=== PATIENT | female | born 1945 | race Caucasian/White ===

== ENCOUNTER → 2017-06-02 | Outpatient (CLI) | payer OTHER | LOC: FIMAGING 12:22 | PROVIDERS: ATTEND Internal Medicine | DX: Z12.31 Encounter for screening mammogram for malignant neoplasm of breast (principal) | CPT/HCPCS: G0202 ==

== ENCOUNTER 2017-07-01 14:16 | Observation (INO) | payer OTHER ==
--- NOTE | 2017-07-01 14:44 | EDPHY ---
H & P Time Seen by Provider: 07/01/17 14:34 HPI/ROS: CHIEF COMPLAINT: Memory difficulties HISTORY OF PRESENT ILLNESS: Patient is a 72-year-old female who was treated for high cholesterol who presents emergency department with memory difficulties. The patient states that she was outside with her . She came to him and stated that she felt "funny." He states that she seemed slightly "foggy." Per report, she had no word-finding difficulties. She had normal speech. She had no weakness or numbness. No visual change or dizziness. No headache or neck pain. No recent fall or trauma. Patient states that she feels as though she is having difficulty remembering things. She took an aspirin but then could not remember that she took an aspirin and took a 2nd tablet. No previous stroke. REVIEW OF SYSTEMS: My complete review of systems is negative except as mentioned in the HPI. Past Medical/Surgical History: Includes hypercholesterolemia Past surgical history: Noncontributory Social history: The patient is here with her . She does not smoke. Physical Exam: Vitals noted GENERAL: Well-appearing, in no acute distress, alert. HEENT: Eyes normal to inspection, normal pharynx, no signs of dehydration. NECK: No thyromegaly, no lymphadenopathy, supple. RESPIRATORY: Clear to auscultation bilaterally, no rales, rhonchi or wheezing. CVS: Regular rate and rhythm, no rubs, murmurs, or gallops. ABDOMEN: Soft, nontender, nondistended, no organomegaly. BACK: Normal to inspection, no CVA tenderness. SKIN: Normal color, no rash, warm, dry. No pallor. EXTREMITIES: No pedal edema, no calf tenderness, no Homans sign or cords, no joint swelling. NEURO/PSYCH: Higher functions: Alert and Oriented x3. Normal speech and cognition. Normal mood and affect. Normal memory 3/3 Cranial nerves: Normal as tested. Cerebellar: Normal as tested. Good finger to nose, good [id number], normal gait. Peripheral exam: Normal motor exam. Normal sensation. Normal reflexes. NIHSS = 0 Constitutional: Initial Vital Signs Temperature (C) 36.5 C 07/01/17 14:31 Heart Rate 71 07/01/17 14:31 Respiratory Rate 16 07/01/17 14:31 Blood Pressure 184/96 H 07/01/17 14:31 O2 Sat (%) 97 07/01/17 14:31 O2 Delivery Mode Room Air Allergies/Adverse Reactions: No Known Allergies Allergy (Verified 07/01/17 14:19) Home Medications: Medication Instructions Recorded Multivitamins [Multivitamin (*)] 1 each PO DAILY 07/01/17 Rosuvastatin Calcium [Crestor 10mg 10 mg PO HS 07/01/17 (RX)] Medical Decision Making - Diagnostics Imaging Results: Imaging Impressions Head CT 07/01/17 14:45 Impression: 1. No acute intracranial findings. 2. Diffuse cerebral atrophy with periventricular and subcortical low attenuation consistent with chronic microvascular ischemic gliosis. Findings discussed with RHONDA Graham OHARA 07/01/2017 at 15:30. Brain MRI 07/01/17 15:33 Impression: 1. No acute intracranial findings. 2. Atrophy with white matter change most likely related to chronic microvascular ischemic gliosis. Findings discussed with RHONDA Graham OHARA 07/01/2017 at 17:05. ED Course/Re-evaluation: I met the patient on arrival. I performed her initial evaluation. Her NIHSS = 0. I did not call a stroke alert as she had a normal neuro exam. I discussed the plan with the patient and her . I answered all her questions. An IV was placed. Laboratory studies and EKG were obtained. Head CT without IV contrast was ordered. I-STAT: Sodium 141, potassium 3.3, glucose 128, creatinine 0.9, hematocrit 45 IV patient's laboratory studies. 15 30: Head CT: No acute disease. Please refer the dictated report by Dr. Coronado. I discussed the results with the patient. I answered all her questions. On recheck she had no focal neurologic deficits. An MRI was ordered. Sinus rhythm at 60. Left axis deviation. I discussed the case with Dr. Ruff. I also discussed the case with Dr. Harvey from Neurology. 17 20: I discussed case with Radiology. No acute disease noted on the MRI. Differential Diagnosis: My differential includes but is not limited to ischemic CVA, hemorrhagic CVA, transient global amnesia, TIA, dissection, aneurysm, electrolyte abnormality, sugar abnormality, ACS - Data Points Laboratory Results: Laboratory Results 07/01/17 14:20 07/01/17 14:20 07/01/17 07/01/17 07/01/17 14:27 14:20 14:20 WBC RBC Hgb POC Hgb 15.3 gm/dL gm/dL (12.6-16.3) Hct POC Hct 45 % % (38-47) MCV MCH MCHC RDW Plt Count MPV Neut % (Auto) Lymph % (Auto) [place] % (Auto) Eos % (Auto) Baso % (Auto) Nucleat RBC Rel Count Absolute Neuts (auto) Absolute Lymphs (auto) Absolute Monos (auto) Absolute Eos (auto) Absolute Basos (auto) Absolute Nucleated RBC Immature Gran % Immature Gran # PT 12.8 SEC SEC (12.0-15.0) INR 0.97 (0.83-1.16) APTT 26.2 SEC SEC (23.0-38.0) POC Sodium 141 mEq/L mEq/L (134-144) Sodium 141 mEq/L mEq/L (134-144) POC Potassium 3.3 mEq/L mEq/L (3.3-5.0) Potassium 3.6 mEq/L mEq/L (3.5-5.2) POC Chloride 105 mEq/L mEq/L (97-110) Chloride 104 mEq/L mEq/L (97-110) Carbon Dioxide 23 mEq/l mEq/l (22-31) Anion Gap 14 mEq/L mEq/L (8-16) POC BUN 17 mg/dL mg/dL (7-23) BUN 16 mg/dL mg/dL (7-23) Creatinine 0.8 mg/dL mg/dL (0.6-1.0) POC Creatinine 0.9 mg/dL mg/dL (0.6-1.0) Estimated GFR > 60 Glucose 129 mg/dL H mg/dL (70-100) POC Glucose 128 mg/dL H mg/dL (70-100) Calcium 9.7 mg/dL mg/dL (8.5-10.4) Troponin I < 0.012 ng/mL ng/mL (0.000-0.034) 07/01/17 14:20 WBC 9.01 10^3/uL 10^3/uL (3.80-9.50) RBC 4.70 10^6/uL 10^6/uL (4.18-5.33) Hgb 14.9 g/dL g/dL (12.6-16.3) POC Hgb Hct 42.1 % % (38.0-47.0) POC Hct MCV 89.6 fL fL (81.5-99.8) MCH 31.7 pg pg (27.9-34.1) MCHC 35.4 g/dL g/dL (32.4-36.7) RDW 11.6 % % (11.5-15.2) Plt Count 219 10^3/uL 10^3/uL (150-400) MPV 9.4 fL fL (8.7-11.7) Neut % (Auto) 64.1 % % (39.3-74.2) Lymph % (Auto) 30.0 % % (15.0-45.0) [place] % (Auto) 4.2 % L % (4.5-13.0) Eos % (Auto) 1.0 % % (0.6-7.6) Baso % (Auto) 0.4 % % (0.3-1.7) Nucleat RBC Rel Count 0.0 % % (0.0-0.2) Absolute Neuts (auto) 5.77 10^3/uL 10^3/uL (1.70-6.50) Absolute Lymphs (auto) 2.70 10^3/uL 10^3/uL (1.00-3.00) Absolute Monos (auto) 0.38 10^3/uL 10^3/uL (0.30-0.80) Absolute Eos (auto) 0.09 10^3/uL 10^3/uL (0.03-0.40) Absolute Basos (auto) 0.04 10^3/uL 10^3/uL (0.02-0.10) Absolute Nucleated RBC 0.00 10^3/uL 10^3/uL (0-0.01) Immature Gran % 0.3 % % (0.0-1.1) Immature Gran # 0.03 10^3/uL 10^3/uL (0.00-0.10) PT INR APTT POC Sodium Sodium POC Potassium Potassium POC Chloride Chloride Carbon Dioxide Anion Gap POC BUN BUN Creatinine POC Creatinine Estimated GFR Glucose POC Glucose Calcium Troponin I Medications Given: Discontinued Medications Sodium Chloride (Ns) 500 mls @ 500 mls/hr IV EDNOW ONE PRN Reason: Protocol Stop: 07/01/17 15:44 Last Admin: 07/01/17 15:35 Dose: 500 mls Point of Care Test Results: 07/01/17 14:27 POC Sodium 141 POC Potassium 3.3 POC Chloride 105 POC BUN 17 POC Creatinine 0.9 POC Glucose 128 H Departure - Departure Disposition: Home, Routine, Self-Care Clinical Impression: Memory loss Condition: Good
[2017-07-01] MEDS ORDERED: NS 500 ML IV ONE (14:45)
--- NOTE | 2017-07-01 14:49 | CPEKG ---
Heart Rate: 60 RR Interval: 1000 P-R Interval: 144 QRSD Interval: 92 QT Interval: 436 QTC Interval: 436 P [place]: 45 QRS [place]: -31 T Wave [place]: -18 EKG Severity - BORDERLINE ECG - EKG Impression: SINUS RHYTHM EKG Impression: LEFT AXIS DEVIATION EKG Impression: BORDERLINE T ABNORMALITIES, DIFFUSE LEADS Electronically Signed By: Fawn Torres 01-Jul-2017 20:57:49
[2017-07-01 14:57] LABS: PLATELET COUNT 219 10^3/uL (150-400)
[2017-07-01 15:14] LABS: INR 0.97 (0.83-1.16); PROTIME(PATIENT) 12.8 SEC (12.0-15.0)
[2017-07-01] MEDS ORDERED: LABETALOL HCL 5 MG/ML 20 ML MDV IVP PRN (17:10)
[2017-07-01] MEDS ORDERED: ACETAMINOPHEN 325 MG TAB PO PRN (17:15)
[2017-07-01] MEDS ORDERED: ONDANSETRON DISINTEGRATING 4 MG TAB PO PRN (17:15)
[2017-07-01] MEDS ORDERED: ONDANSETRON 4 MG/2 ML VIAL IVP PRN (17:15)
--- NOTE | 2017-07-01 17:24 | PDGENHP ---
History and Physical - Chief Complaint acute memory loss - History of Present Illness Patient is a 72-year-old female with hx of HLD who presented to the emergency department with acute short term memory problems and feeling of being lost while gardening today. she could not remember what she was doing or why she was there. She had no word-finding difficulties. She had normal speech. She had no weakness or numbness. No visual change or dizziness. No headache or neck pain. No recent fall or trauma. She took 2 Aspirin prior to arrival to the E.D. In the E.D. her symptoms persisted. CT brain was unremarkable for acute findings. An MRI of the brain is pending. She has no other neuro deficits. No hx of Afib. She has no difficulty with swallowing. Neuro has been consulted by the E.D she is being admitted for further w/u. Denies CP, palpitations, leg swelling, SOB, N/V PMhx: hypercholesterolemia Social history: non smoker. FmHx: NC History Information - Allergies/Home Medication List Allergies/Adverse Reactions: No Known Allergies Allergy (Verified 07/01/17 14:19) Home Medications: Multivitamins [Multivitamin (*)] 1 each PO DAILY 07/01/17 [Last Taken 2 Weeks Ago ~06/17/17] Rosuvastatin Calcium [Crestor 10mg (RX)] 10 mg PO HS 07/01/17 [Last Taken ] I have personally reviewed and updated: medical history, social history - Social History Smoking Status: Never smoked Review of Systems Review of Systems: ROS: 10pt was reviewed & negative except for what was stated in HPI & below Physical Exam Physical Exam: Temp Pulse Resp BP Pulse Ox 36.5 C 62 16 152/92 H 95 07/01/17 14:31 07/01/17 15:39 07/01/17 15:39 07/01/17 15:39 07/01/17 15:39 Constitutional: no apparent distress, appears nourished Eyes: PERRL, EOMI Ears, Nose, Mouth, Throat: moist mucous membranes, hearing normal Cardiovascular: regular rate and rhythym, no murmur, rub, or gallop, No edema Respiratory: no respiratory distress, no rales or rhonchi, clear to auscultation Gastrointestinal: normoactive bowel sounds, soft, non-tender abdomen Skin: warm Neurologic: AAOx3, CN II-XII Intact, No facial droop Psychiatric: interacting appropriately, not anxious, not encephalopathic, thought process linear, encephalopathic Lab Data & Imaging Review 07/01/17 14:20 07/01/17 14:20 WBC 9.01 10^3/uL (3.80-9.50) 07/01/17 14:20 RBC 4.70 10^6/uL (4.18-5.33) 07/01/17 14:20 Hgb 14.9 g/dL (12.6-16.3) 07/01/17 14:20 POC Hgb 15.3 gm/dL (12.6-16.3) 07/01/17 14:27 Hct 42.1 % (38.0-47.0) 07/01/17 14:20 POC Hct 45 % (38-47) 07/01/17 14:27 MCV 89.6 fL (81.5-99.8) 07/01/17 14:20 MCH 31.7 pg (27.9-34.1) 07/01/17 14:20 MCHC 35.4 g/dL (32.4-36.7) 07/01/17 14:20 RDW 11.6 % (11.5-15.2) 07/01/17 14:20 Plt Count 219 10^3/uL (150-400) 07/01/17 14:20 MPV 9.4 fL (8.7-11.7) 07/01/17 14:20 Neut % (Auto) 64.1 % (39.3-74.2) 07/01/17 14:20 Lymph % (Auto) 30.0 % (15.0-45.0) 07/01/17 14:20 [place] % (Auto) 4.2 % (4.5-13.0) L 07/01/17 14:20 Eos % (Auto) 1.0 % (0.6-7.6) 07/01/17 14:20 Baso % (Auto) 0.4 % (0.3-1.7) 07/01/17 14:20 Nucleat RBC Rel Count 0.0 % (0.0-0.2) 07/01/17 14:20 Absolute Neuts (auto) 5.77 10^3/uL (1.70-6.50) 07/01/17 14:20 Absolute Lymphs (auto) 2.70 10^3/uL (1.00-3.00) 07/01/17 14:20 Absolute Monos (auto) 0.38 10^3/uL (0.30-0.80) 07/01/17 14:20 Absolute Eos (auto) 0.09 10^3/uL (0.03-0.40) 07/01/17 14:20 Absolute Basos (auto) 0.04 10^3/uL (0.02-0.10) 07/01/17 14:20 Absolute Nucleated RBC 0.00 10^3/uL (0-0.01) 07/01/17 14:20 Immature Gran % 0.3 % (0.0-1.1) 07/01/17 14:20 Immature Gran # 0.03 10^3/uL (0.00-0.10) 07/01/17 14:20 PT 12.8 SEC (12.0-15.0) 07/01/17 14:20 INR 0.97 (0.83-1.16) 07/01/17 14:20 APTT 26.2 SEC (23.0-38.0) 07/01/17 14:20 POC Sodium 141 mEq/L (134-144) 07/01/17 14:27 Sodium 141 mEq/L (134-144) 07/01/17 14:20 POC Potassium 3.3 mEq/L (3.3-5.0) 07/01/17 14:27 Potassium 3.6 mEq/L (3.5-5.2) 07/01/17 14:20 POC Chloride 105 mEq/L (97-110) 07/01/17 14:27 Chloride 104 mEq/L (97-110) 07/01/17 14:20 Carbon Dioxide 23 mEq/l (22-31) 07/01/17 14:20 Anion Gap 14 mEq/L (8-16) 07/01/17 14:20 POC BUN 17 mg/dL (7-23) 07/01/17 14:27 BUN 16 mg/dL (7-23) 07/01/17 14:20 Creatinine 0.8 mg/dL (0.6-1.0) 07/01/17 14:20 POC Creatinine 0.9 mg/dL (0.6-1.0) 07/01/17 14:27 Estimated GFR > 60 07/01/17 14:20 Glucose 129 mg/dL (70-100) H 07/01/17 14:20 POC Glucose 128 mg/dL (70-100) H 07/01/17 14:27 Calcium 9.7 mg/dL (8.5-10.4) 07/01/17 14:20 Troponin I < 0.012 ng/mL (0.000-0.034) 07/01/17 14:20 Assessment & Plan Assessment: #Acute short term memory loss #?TIA #HLD Plan: -Neuro to consult, await reccs -Await MRI -TTE -Corotid US -Check RF, lipid panel -cont Statin -Schedule low dose Aspirin -Slight HTN noted, will allow permissive HTN -Telemetry -SCD's
[2017-07-01] MEDS ORDERED: ROSUVASTATIN CALCIUM 10 MG TAB PO SCH (21:00)
[2017-07-02 08:05] VITALS: RESP 14; O2SAT 94
[2017-07-02] MEDS ORDERED: MULTIVITAMINS 1 EACH TAB PO SCH (09:00)
[2017-07-02] MEDS ORDERED: ASPIRIN 81 MG CHEWABLE TAB PO SCH (09:00)
[2017-07-02 10:56] VITALS: BP 115/67; PULSE 58; TEMP 98
--- NOTE | 2017-07-02 10:59 | GCON ---
[f rep st] CONSULTATION NEUROLOGY CONSULTATION DATE OF CONSULTATION: 07/02/2017 REFERRING PHYSICIAN: Kingsley Ruff MD BILLING INFORMATION: seventy total minutes on the floor today and reviewing records, neuro imaging and in direct counseling with the patient along with coordination of care. CHIEF COMPLAINT: Amnesia. 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 She recently came home from a trip from [place] and states she was dehydrated. Then yesterday morning, she and her were working quite vigorously with an orbital alen to sand off the paint from their external home to repaint it themselves. She states she was applying a great deal of pressure with her chest and upper extremities while standing on a ladder using her core muscles along with repetitive kneeling and standing up. Certainly, she had repetitive Valsalva type maneuvers. Then, a little later in the morning, she began having a feeling of "fuzziness" and minimal headache symptoms. Her then noticed that the patient was unable to form new memories for a period of around 3-5 hours in total. She would repeat questions such as why are we having lunch although they just spoken about it a moment previously and repeat the same questions over and over. At no point - did she have loss or alteration of consciousness. She was brought to the ER and, after 1 or 2 hours in the ER, the symptoms completely resolved. There was never any focal weakness, sensory loss, language or motor speech disturbance at any time during these events. The patient had an MRI brain which showed no acute findings. No acute infarct or hemorrhage. The brain looks fairly healthy in terms of microvascular changes, there is minimal. She had a carotid ultrasound which showed no flow-limiting stenosis in the carotid system. There is some minimal plaque. She is essentially resolved overnight and doing well. REVIEW OF SYSTEMS: Ten-point review of system was done and only pertinent to HPI. PAST MEDICAL HISTORY: Please see Dr. Ruff's history and physical. SOCIAL HISTORY: Please see Dr. Ruff's history and physical. HOME MEDICATIONS: Please see Dr. Ruff's history and physical. ALLERGIES: Please see Dr. Ruff's history and physical PHYSICAL EXAMINATION: VITAL SIGNS: Blood pressure is 127/77, temperature 36.9 , heart rate is 64, O2 saturation is 95%. GENERAL: In no acute distress. Very pleasant. NEUROLOGIC: Higher mental function. She names 5/5, follows commands 5/5, and repeats 5/5. No aphasia. She is lucid. Cranial nerve exam normal 2 through 7, 11, and 12. No dysarthria or any other abnormal findings. Motor exam normal strength tone and DTRs throughout. Sensory normal to light touch throughout. Coordination normal. IMPRESSION AND PLAN: 1. Transient global amnesia. The patient's clinical history best fits with transient global amnesia (TGA). I am reassured that there were no focal motor, sensory, language or motor speech symptoms to suggest an acute neurovascular syndrome. Moreover, her MRI brain was negative in terms of diffusion-weighted images hours into symptom onset. All of this would support the diagnosis of transient global amnesia. She has no neurologic history such as seizures or migraines. Her activity of vigorous work, sanding the paint from their home is not an uncommon historical feature preceding an episode of transient global amnesia. She was counseled to such. We will put her on 2 weeks of [address] restrictions and seizure precautions for safety. I will arrange for an outpatient EEG and follow up after that study is complete to review the results. We will do this to exclude any epileptiform abnormalities. From my standpoint, she can discharge from the hospital any time back to home. We will arrange outpatient followup. Thank for this consultation. The patient will have close follow-up with PCP as well to monitor her blood pressures. Her higher blood pressures in the ED may have been reactive rather than causative. But certainly this needs to be followed up on a long-term basis with her primary care physician. She is agreeable. /[id number]/MODL MTDD
--- NOTE | 2017-07-02 11:42 | ASMTCASEMG ---
Living Arrangements What is your living Answers: With Spouse arrangement? Who do you live with? Type Of Residence What kind of residence do Answers: House you live in? Discharge Plan Comments Coordination Status Comments Notes: Pt has been cleared from neurology to d/c home. CM spoke w/ PT and pt can go home independent. CM met w/ pt dispo planning. Pt does not have any needs at this time. CM available for d/c needs. Date Signed: 07/02/2017 11:42 AM Electronically Signed By:LINDSEY Villar
--- NOTE | 2017-07-02 12:18 | ECHO ---
[email or web address] [address] [address] Main: [phone] Fax: Transthoracic Echocardiogram Name: LETY KAMARA MR#: [id number] Study Date: 07/02/2017 Study Time: 11:27 AM Date of : 1945 Age: 72 year(s) Height: 160 cm (63 in.) Weight: 56.7 kg (125 lb.) BSA: 1.58 m2 Gender: Female Examination: Echo with Agitated Saline Indication: ischemic stroke; r/o PFO Image Quality: Adequate Contrast: I.V. dose of agitated saline Requested by: Kingsley Ruff BP: / Heart Rate: Rhythm: Indication: ischemic stroke; r/o PFO Procedure Staff Nurseryperson: Yenifer Corcoran Physician: Francis Washington Requesting Provider: Conclusions: Normal study Measurements: Chambers Valvular Assessment AV/MV Valvular Assessment TV/PV Normal Normal Normal Name Value Range Name Value Range Name Value Range Ao Maria Isabel (MM): 1.8 cm (2.2 cm-3.7 AV Vmax: 1.59 m/s (1 m/s-1.7 PV Vmax: 0.85 m/s (0.6 m/s-0.9 cm) m/s) m/s) IVSd (2D): 0.9 cm (0.6 cm-1.1 AV maxP mmHg ( - ) PV PGmax: 3 mmHg ( - ) cm) LVOT Vmax: 1.28 m/s (0.7 m/s-1.1 LVDd (2D): 3.8 cm (3.9 cm-5.3 m/s) cm) MV E Vmax: 0.77 m/s ( - ) LVDs (2D): 2.3 cm (2.1 cm-4 MV A Vmax: 0.82 m/s ( - ) cm) MV E/A: 0.94 ( - ) LVPWd (2D): 0.8 cm ( - ) LVEF (BP): 73 % (>=55 %) RVDd(2D): 2.4 cm (1.9 cm-3.8 cmmm) Continued Measurements: Chambers Valvular Assessment AV/MV Valvular Assessment TV/PV Name Value Name Value Name Value LADs Lon.1 cm MV DecTime: 222 m/s CVP (est.): 5 mmHg LA Area: 8.5 cm2 MV E' Septal: 0.09 m/s LA Volume: 20 ml MV E/E' Septal: 8.60 LA Volume Index: 12.7 ml/m2 MV E/E' Lateral: 7.80 Patient: LETY KAMARA Study Date: 07/02/2017 Page 1 of 2 11:27 AM Findings: Left Ventricle: Normal size left ventricle. No LV hypertrophy. Normal global systolic LV function. EF is 73 %. No regional wall motion abnormality. Normal diastolic LV function. Right Ventricle: Normal size right ventricle. Normal RV function. Left Atrium: The left atrium is normal in size. An agitated saline study was performed and was negative for intracardiac shunting. Right Atrium: The right atrium is normal in size. Mitral Valve: The mitral valve is normal in appearance and function. There is no mitral valve regurgitation. Aortic Valve: The aortic valve is normal in appearance and function. There is no aortic valve regurgitation. No aortic valve stenosis is present. Tricuspid Valve: The tricuspid valve is normal in appearance and function. There is no significant tricuspid valve regurgitation. Pulmonary artery pressure is not obtained due to inadequate TR jet. Pulmonic Valve: The pulmonic valve is normal in appearance and function. Aorta: The aorta is normal. Normal size aortic root measuring 1.8 cm. Pericardium: No pericardial effusion. (No Signature Object) Patient: LETY KAMARA Study Date: 07/02/2017 Page 2 of 2 11:27 AM [id number]
--- NOTE | 2017-07-02 12:18 | ECHO ---
[email or web address] [address] [address] Main: [phone] Fax: Transthoracic Echocardiogram Name: LETY KAMARA MR#: [id number] Study Date: 07/02/2017 Study Time: 11:27 AM Date of : 1945 Age: 72 year(s) Height: 160 cm (63 in.) Weight: 56.7 kg (125 lb.) BSA: 1.58 m2 Gender: Female Examination: Echo with Agitated Saline Indication: ischemic stroke; r/o PFO Image Quality: Adequate Contrast: I.V. dose of agitated saline Requested by: Kingsley Ruff BP: / Heart Rate: Rhythm: Indication: ischemic stroke; r/o PFO Procedure Staff Set O Type Operator: Yenifer Corcoran Physician: Francis Washington Requesting Provider: Conclusions: Normal study Measurements: Chambers Valvular Assessment AV/MV Valvular Assessment TV/PV Normal Normal Normal Name Value Range Name Value Range Name Value Range Ao Maria Isabel (MM): 1.8 cm (2.2 cm-3.7 AV Vmax: 1.59 m/s (1 m/s-1.7 PV Vmax: 0.85 m/s (0.6 m/s-0.9 cm) m/s) m/s) IVSd (2D): 0.9 cm (0.6 cm-1.1 AV maxP mmHg ( - ) PV PGmax: 3 mmHg ( - ) cm) LVOT Vmax: 1.28 m/s (0.7 m/s-1.1 LVDd (2D): 3.8 cm (3.9 cm-5.3 m/s) cm) MV E Vmax: 0.77 m/s ( - ) LVDs (2D): 2.3 cm (2.1 cm-4 MV A Vmax: 0.82 m/s ( - ) cm) MV E/A: 0.94 ( - ) LVPWd (2D): 0.8 cm ( - ) LVEF (BP): 73 % (>=55 %) RVDd(2D): 2.4 cm (1.9 cm-3.8 cmmm) Continued Measurements: Chambers Valvular Assessment AV/MV Valvular Assessment TV/PV Name Value Name Value Name Value LADs Lon.1 cm MV DecTime: 222 m/s CVP (est.): 5 mmHg LA Area: 8.5 cm2 MV E' Septal: 0.09 m/s LA Volume: 20 ml MV E/E' Septal: 8.60 LA Volume Index: 12.7 ml/m2 MV E/E' Lateral: 7.80 Patient: LETY KAMARA Study Date: 07/02/2017 Page 1 of 2 11:27 AM Findings: Left Ventricle: Normal size left ventricle. No LV hypertrophy. Normal global systolic LV function. EF is 73 %. No regional wall motion abnormality. Normal diastolic LV function. Right Ventricle: Normal size right ventricle. Normal RV function. Left Atrium: The left atrium is normal in size. An agitated saline study was performed and was negative for intracardiac shunting. Right Atrium: The right atrium is normal in size. Mitral Valve: The mitral valve is normal in appearance and function. There is no mitral valve regurgitation. Aortic Valve: The aortic valve is normal in appearance and function. There is no aortic valve regurgitation. No aortic valve stenosis is present. Tricuspid Valve: The tricuspid valve is normal in appearance and function. There is no significant tricuspid valve regurgitation. Pulmonary artery pressure is not obtained due to inadequate TR jet. Pulmonic Valve: The pulmonic valve is normal in appearance and function. Aorta: The aorta is normal. Normal size aortic root measuring 1.8 cm. Pericardium: No pericardial effusion. (No Signature Object) Patient: LETY KAMARA Study Date: 07/02/2017 Page 2 of 2 11:27 AM [id number]
--- NOTE | 2017-07-02 12:18 | ECHO ---
[email or web address] [address] [address] Main: [phone] Fax: Transthoracic Echocardiogram Name: LETY KAMARA MR#: [id number] Study Date: 07/02/2017 Study Time: 11:27 AM Date of : 1945 Age: 72 year(s) Height: 160 cm (63 in.) Weight: 56.7 kg (125 lb.) BSA: 1.58 m2 Gender: Female Examination: Echo with Agitated Saline Indication: ischemic stroke; r/o PFO Image Quality: Adequate Contrast: I.V. dose of agitated saline Requested by: Kingsley Ruff BP: / Heart Rate: Rhythm: Indication: ischemic stroke; r/o PFO Procedure Staff [employer] Roller: Yenifer Corcoran Physician: Francis Washington Requesting Provider: Conclusions: Normal study Measurements: Chambers Valvular Assessment AV/MV Valvular Assessment TV/PV Normal Normal Normal Name Value Range Name Value Range Name Value Range Ao Maria Isabel (MM): 1.8 cm (2.2 cm-3.7 AV Vmax: 1.59 m/s (1 m/s-1.7 PV Vmax: 0.85 m/s (0.6 m/s-0.9 cm) m/s) m/s) IVSd (2D): 0.9 cm (0.6 cm-1.1 AV maxP mmHg ( - ) PV PGmax: 3 mmHg ( - ) cm) LVOT Vmax: 1.28 m/s (0.7 m/s-1.1 LVDd (2D): 3.8 cm (3.9 cm-5.3 m/s) cm) MV E Vmax: 0.77 m/s ( - ) LVDs (2D): 2.3 cm (2.1 cm-4 MV A Vmax: 0.82 m/s ( - ) cm) MV E/A: 0.94 ( - ) LVPWd (2D): 0.8 cm ( - ) LVEF (BP): 73 % (>=55 %) RVDd(2D): 2.4 cm (1.9 cm-3.8 cmmm) Continued Measurements: Chambers Valvular Assessment AV/MV Valvular Assessment TV/PV Name Value Name Value Name Value LADs Lon.1 cm MV DecTime: 222 m/s CVP (est.): 5 mmHg LA Area: 8.5 cm2 MV E' Septal: 0.09 m/s LA Volume: 20 ml MV E/E' Septal: 8.60 LA Volume Index: 12.7 ml/m2 MV E/E' Lateral: 7.80 Patient: LETY KAMARA Study Date: 07/02/2017 Page 1 of 2 11:27 AM Findings: Left Ventricle: Normal size left ventricle. No LV hypertrophy. Normal global systolic LV function. EF is 73 %. No regional wall motion abnormality. Normal diastolic LV function. Right Ventricle: Normal size right ventricle. Normal RV function. Left Atrium: The left atrium is normal in size. An agitated saline study was performed and was negative for intracardiac shunting. Right Atrium: The right atrium is normal in size. Mitral Valve: The mitral valve is normal in appearance and function. There is no mitral valve regurgitation. Aortic Valve: The aortic valve is normal in appearance and function. There is no aortic valve regurgitation. No aortic valve stenosis is present. Tricuspid Valve: The tricuspid valve is normal in appearance and function. There is no significant tricuspid valve regurgitation. Pulmonary artery pressure is not obtained due to inadequate TR jet. Pulmonic Valve: The pulmonic valve is normal in appearance and function. Aorta: The aorta is normal. Normal size aortic root measuring 1.8 cm. Pericardium: No pericardial effusion. (No Signature Object) Patient: LETY KAMARA Study Date: 07/02/2017 Page 2 of 2 11:27 AM [id number]
--- NOTE | 2017-07-02 12:39 | HOSPPROG ---
Hospitalist Progress Note Assessment/Plan: Patient is a 72-year-old female with hx of HLD who presented to the emergency department with acute short term memory problems and feeling of being lost while gardening today. She could not remember what she was doing or why she was there. She had no word-finding difficulties. She had normal speech. She had no weakness or numbness. No visual change or dizziness. No headache or neck pain. No recent fall or trauma. She took 2 Aspirin prior to arrival to the E.D. Today is my first encounter w the patient/ chart reviewed. Reviewed her care with Dr Streeter. *Transient global amnesia MRI of brain shows nothing acute carotid dopplers show no flow limiting stenosis recommendation is no driving x 2 weeks and seizure precautions to f/u with Dr Streeter and get an EEG reviewed color television console monitor/ she has been in sinus/ no afib or ectopy *HTN should f/u with PCP stable this afternooon *Plan: dc home Subjective: Adrienne has no complaints. Objective: Vital Signs Temp Pulse Resp BP Pulse Ox 36.7 C 58 L 14 115/67 94 07/02/17 10:54 07/02/17 11:02 07/02/17 10:54 07/02/17 11:02 07/02/17 10:54 07/01/17 07/02/17 07/03/17 05:59 05:59 05:59 Intake Total 450 500 Balance 450 500 PT 12.8 SEC (12.0-15.0) 07/01/17 14:20 INR 0.97 (0.83-1.16) 07/01/17 14:20 - Physical Exam Constitutional: no apparent distress, appears nourished, not in pain Eyes: PERRL Ears, Nose, Mouth, Throat: hearing normal Cardiovascular: regular rate and rhythym Respiratory: no respiratory distress Skin: warm Musculoskeletal: full muscle strength Neurologic: AAOx3 Psychiatric: interacting appropriately ICD10 Worksheet Patient Problems: Problems Problem Status Onset Memory loss Acute
--- NOTE | 2017-07-02 13:59 | GDS ---
[f rep st] DISCHARGE SUMMARY DISCHARGE DIAGNOSIS: 1. Transient global amnesia. 2. Hypertension. BRIEF HISTORY: The patient is a 72-year-old female with a history of hyperlipidemia. She presented to the emergency department with acute short- term memory problems and felt like she was lost while gardening. She did not remember what she was doing or why she was there. She had no word-finding difficulties. She was seen and evaluated by Neurology who noted that she has transient global amnesia. An MRI of her brain showed nothing acute. Her carotid Doppler showed no flow-limiting stenosis. Recommendations are no driving x2 week and seizure precautions. HOSPITAL COURSE BY PROBLEM: 1. Transient global amnesia. Her symptoms have resolved. On the compliance monitor, she has been in sinus rhythm. To follow up with Dr. Streeter and get an EEG. 2. Hypertension. Follow up with her PCP. It is stable this afternoon. DISCHARGE CONDITION: Stable. VITAL SIGNS: Blood pressure is 115/67, respiratory rate is 14, pulse is 58, temperature 36.7 Celsius, O2 sats on room air 94%. MEDICATIONS AT DISCHARGE: Please see the EMR. DISCHARGE INSTRUCTIONS: 1. No driving x2 weeks. 2. To take seizure precautions. For example, no climbing up ladders and swimming alone. 3. To follow up with Dr. Streeter. She will need EEG evaluation. Copy requested to: Dr. Ferdinand Chopra /[id number]/MODL MTDD
--- NOTE | 2017-07-02 13:59 | GDS ---
[f rep st] DISCHARGE SUMMARY DISCHARGE DIAGNOSIS: 1. Transient global amnesia. 2. Hypertension. BRIEF HISTORY: The patient is a 72-year-old female with a history of hyperlipidemia. She presented to the emergency department with acute short- term memory problems and felt like she was lost while gardening. She did not remember what she was doing or why she was there. She had no word-finding difficulties. She was seen and evaluated by Neurology who noted that she has transient global amnesia. An MRI of her brain showed nothing acute. Her carotid Doppler showed no flow-limiting stenosis. Recommendations are no driving x2 week and seizure precautions. HOSPITAL COURSE BY PROBLEM: 1. Transient global amnesia. Her symptoms have resolved. 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 To follow up with Dr. Streeter and get an EEG. 2. Hypertension. Follow up with her PCP. It is stable this afternoon. DISCHARGE CONDITION: Stable. VITAL SIGNS: Blood pressure is 115/67, respiratory rate is 14, pulse is 58, temperature 36.7 Celsius, O2 sats on room air 94%. MEDICATIONS AT DISCHARGE: Please see the EMR. DISCHARGE INSTRUCTIONS: 1. No driving x2 weeks. 2. To take seizure precautions. For example, no climbing up ladders and swimming alone. 3. To follow up with Dr. Streeter. She will need EEG evaluation. Copy requested to: Dr. Ferdinand Chopra /[id number]/MODL MTDD
--- NOTE | 2017-07-02 13:59 | GDS ---
[f rep st] DISCHARGE SUMMARY DISCHARGE DIAGNOSIS: 1. Transient global amnesia. 2. Hypertension. BRIEF HISTORY: The patient is a 72-year-old female with a history of hyperlipidemia. She presented to the emergency department with acute short- term memory problems and felt like she was lost while gardening. She did not remember what she was doing or why she was there. She had no word-finding difficulties. She was seen and evaluated by Neurology who noted that she has transient global amnesia. An MRI of her brain showed nothing acute. Her carotid Doppler showed no flow-limiting stenosis. Recommendations are no driving x2 week and seizure precautions. HOSPITAL COURSE BY PROBLEM: 1. Transient global amnesia. Her symptoms have resolved. 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 To follow up with Dr. Streeter and get an EEG. 2. Hypertension. Follow up with her PCP. It is stable this afternoon. DISCHARGE CONDITION: Stable. VITAL SIGNS: Blood pressure is 115/67, respiratory rate is 14, pulse is 58, temperature 36.7 Celsius, O2 sats on room air 94%. MEDICATIONS AT DISCHARGE: Please see the EMR. DISCHARGE INSTRUCTIONS: 1. No driving x2 weeks. 2. To take seizure precautions. For example, no climbing up ladders and swimming alone. 3. To follow up with Dr. Streeter. She will need EEG evaluation. Copy requested to: Dr. Ferdinand Chopra /[id number]/MODL MTDD
== END 2017-07-02 14:21 | disposition home or self-care (01) ==
LOC: F3N 18:37
PROVIDERS: ADMIT Family Medicine; ATTEND Family Medicine
DX: G45.4 Transient global amnesia (principal); I10 Essential (primary) hypertension
CPT/HCPCS: 70450; 70551; 93005; 93306; 93880; G0378; 82947-QW

== ENCOUNTER → 2018-06-04 | Outpatient (CLI) | payer OTHER | LOC: FIMAGING 11:40 | PROVIDERS: ATTEND Obstetrics & Gynecology | DX: Z12.31 Encounter for screening mammogram for malignant neoplasm of breast (principal) ==